=== PATIENT | male | born 1975 | race Caucasian/White ===

== ENCOUNTER 2016-05-05 05:49 | Emergency (ER) | payer SELFPAY ==
[~2016-05-05] VITALS: Ht 175.3 cm; Wt 86.4 kg
[~2016-05-05 05:49] MED LIST: CIPRO500 MG PO; FLAGYL500 MG PO; MEDROL DOSEPAK4 MG PO; PERCOCET 5/31 TABLET PO; ZOFRAN ODT4 MG PO
[2016-05-05 06:11] LABS: HEMATOCRIT 45.6 % (38.0-50.0); MCH 29.5 PG (29.0-34.0); MCHC 35.7 G/DL (30.0-36.0); MCV 82.6 FL (86-99); MEAN PLAT.VOLUME 10.5 uM^3 (9.0-12.4); PLATELET COUNT 332 K/uL (156-360); RBC DIS.WIDTH-CV 12.6 % (11.8-14.6); RBC DIS.WIDTH-SD 37.8 % (39-53); RED BLOOD COUNT 5.52 M/uL (4.00-5.50); WHITE BLOOD COUNT 7.5 K/uL (4.1-10.2)
[2016-05-05 06:22] LABS: CHLORIDE 108 mEq/L (99-109); POTASSIUM 4.1 mEq/L (3.7-5.4); SODIUM 142 mEq/L (136-147)
[2016-05-05 06:24] LABS: GLUCOSE 103 mg/dL (70-99)
[2016-05-05 06:25] LABS: ANION GAP 12 MEQ/L (2-14)
[2016-05-05 06:27] LABS: GFR ESTIMATE (CALCULATED) > 59 mL/min/
[2016-05-05 06:28] LABS: UREA NITROGEN (BUN) 14 mg/dL (9-23)
[2016-05-05 06:32] LABS: TROP-I INTERPRETATION NEGATIVE; TROPONIN-I < 0.01 ng/mL (0.0-0.30)
[2016-05-05 06:37] LABS: D-DIMER ELISA 0.17 mg/L FEU (< 0.57)
[2016-05-05 07:19] VITALS: BP 144/103
== END 2016-05-05 07:20 | disposition home or self-care (01) ==
LOC: EME 05:49
DX: R00.2 Palpitations (principal); Z88.0 Allergy status to penicillin
CPT/HCPCS: 71020; 80048; 84484; 85027; 85379; 93005; 99281; 99284